=== PATIENT | female | born 1965 | race Two or more races ===

== ENCOUNTER 2020-11-02 12:03 | Emergency (ER) | payer SELFPAY ==
[~2020-11-02] VITALS: Ht 162.6 cm; Wt 68.0 kg
--- NOTE | 2020-11-02 13:21 | NUR ---
Patient discharged to home in stable condition. Written and verbal after care instructions given. Patient verbalizes understanding of instruction.
[2020-11-02 13:22] VITALS: BP 140/88
== END 2020-11-02 13:22 | disposition home or self-care (01) ==
LOC: ER 12:06
DX: S00.83XA Contusion of other part of head, initial encounter (principal); E78.00 Pure hypercholesterolemia, unspecified; Z90.710 Acquired absence of both cervix and uterus; Z60.2 Problems related to living alone; W18.39XA Other fall on same level, initial encounter; Y93.89 Activity, other specified; Y92.89 Other specified places as the place of occurrence of the external cause; Y99.8 Other external cause status
CPT/HCPCS: 70486-TC